=== PATIENT | male | born 1995 | race Two or more races ===

== ENCOUNTER 2020-03-29 19:29 | Emergency (ER) | payer MEDICAID, OTHER ==
[~2020-03-29] VITALS: Ht 170.2 cm; Wt 63.5 kg
[2020-03-29 19:42] VITALS: BP 125/66
== END 2020-03-29 21:03 | disposition home or self-care (01) ==
LOC: ER 19:29 → EDBD 19:29 → ER 20:46
DX: R53.83 Other fatigue (principal); W19.XXXA Unspecified fall, initial encounter; Y93.89 Activity, other specified; Y92.89 Other specified places as the place of occurrence of the external cause; Y99.8 Other external cause status